=== PATIENT | male | born 1945 | race Two or more races ===

== ENCOUNTER 2023-04-12 18:40 | Inpatient (IN) | payer OTHER ==
[~2023-04-12] VITALS: Ht 180.3 cm; Wt 75.9 kg
[2023-04-12 22:00] VITALS: BP 148/68; PULSE 67; RESP 19; TEMP 98.6; O2SAT 97
[2023-04-12] MEDS ORDERED: DOCUSATE SOD 100 MG CAP PO PRN (22:45)
[2023-04-12] MEDS ORDERED: MORPHINE SULFATE INJ 2 MG/ml SYRG IV PRN (22:45)
[2023-04-12] MEDS ORDERED: ONDANSETRON HCL 4 MG/2 ML VIAL IV PRN (22:45)
[2023-04-12] MEDS ORDERED: NITROGLYCERIN 0.4 MG SL TAB SL PRN (22:45)
[2023-04-12 23:32] VITALS: BP 148/68; PULSE 67; RESP 19; TEMP 98.6; O2SAT 97
[2023-04-12] MEDS: MORPHINE SULFATE INJ 2 MG/ml SYRG IV PRN (23:59)
[2023-04-13] MEDS ORDERED: hydrALAZINE HCL 20 MG/ML VL IV PRN (00:30)
[2023-04-13] MEDS: MELATONIN 5 MG TAB PO ONE (01:22)
[2023-04-13] MEDS: HYDROcodone-ACET 5/325MG TAB PO PRN (02:00)
[2023-04-13 05:00] VITALS: BP 132/49; PULSE 74; RESP 17; TEMP 98.7; O2SAT 98
[2023-04-13] MEDS: PIPERACILLIN-TAZOB 3.375GM 100 ML IV SCH (05:46)
[2023-04-13 06:21] LABS: Basophils # (auto) 0.1 10 ^3/uL (0-0.2); Basophils % (auto) 0.4 % (0.0-2.0); Eosinophils # (auto) 0.1 10 ^3/uL (0-0.8); Eosinophils % (auto) 0.4 % (0.0-7.0); Hematocrit 35.2 % (41.0-53.0); Hemoglobin 11.3 g/dL (13.5-17.5); Lymphocytes % (auto) 7.2 % (10.0-50.0); Mean Corpuscular Hemoglobin 29.1 pg (28.0-32.0); Mean Corpuscular Hgb Conc. 32.1 g/dL (32.0-36.0); Mean Corpuscular Volume 90.7 fL (80.0-100.0); Monocytes # (auto) 0.9 10 ^3/uL (0-1.3); Monocytes % (auto) 6.3 % (0.0-12.0); Neutrophils # (auto) 11.9 10 ^3/uL (1.6-8.6); Neutrophils % (auto) 85.7 % (37.0-80.0); Nucleated Red Blood Cells % 0.1 %; Red Blood Cells 3.88 10^6/uL (4.5-5.90); Red Cell Distribution Width 18.5 % (11.8-14.3); White Blood Cell 13.8 10^3/uL (4.4-10.8)
[2023-04-13 06:22] LABS: Calcium 8.8 mg/dL (8.5-10.1); Chloride 101 mmol/L (98-107); Potassium 3.9 mmol/L (3.5-5.1); Sodium 132 mmol/L (136-145)
[2023-04-13 06:23] LABS: Anion Gap 10 (5-15); Carbon Dioxide 21 mmol/L (20-30)
[2023-04-13 06:28] LABS: BUN/Creatinine Ratio 10.3 (10.0-20.0); Blood Urea Nitrogen 7 mg/dL (9-23); Glucose 91 mg/dL (74-106)
[2023-04-13] MEDS ORDERED: FURO1TAB33 PO (06:42)
[2023-04-13 09:00] VITALS: BP 167/81; PULSE 96; RESP 18; TEMP 97.9; O2SAT 96
[2023-04-13 13:00] VITALS: BP 152/84; PULSE 74; RESP 19; TEMP 97.8; O2SAT 94
[2023-04-13 17:00] VITALS: BP 153/80; PULSE 93; RESP 19; TEMP 98.1; O2SAT 94
[2023-04-13 20:00] VITALS: BP 128/69; PULSE 85; RESP 18; TEMP 98; O2SAT 99
[2023-04-13 22:00] VITALS: BP 128/69; PULSE 85; RESP 18; TEMP 98; O2SAT 94
[2023-04-13] MEDS: MELATONIN 5 MG TAB PO SCH (22:18)
[2023-04-14] VITALS (8 sets, daily range): BP systolic 135–154; BP diastolic 54–89; PULSE 65–91; RESP 18–20; TEMP 97.4–97.9; O2SAT 93–100
[2023-04-14 06:38] LABS: Basophils # (auto) 0 10 ^3/uL (0-0.2); Basophils % (auto) 0.3 % (0.0-2.0); Eosinophils # (auto) 0.1 10 ^3/uL (0-0.8); Eosinophils % (auto) 1.3 % (0.0-7.0); Hematocrit 31.3 % (41.0-53.0); Lymphocytes # (auto) 1.1 10 ^3/uL (0.4-5.4); Lymphocytes % (auto) 9.8 % (10.0-50.0); Mean Corpuscular Hemoglobin 28.3 pg (28.0-32.0); Mean Corpuscular Hgb Conc. 31.9 g/dL (32.0-36.0); Mean Corpuscular Volume 88.9 fL (80.0-100.0); Monocytes % (auto) 8.8 % (0.0-12.0); Neutrophils # (auto) 8.9 10 ^3/uL (1.6-8.6); Neutrophils % (auto) 79.8 % (37.0-80.0); Nucleated Red Blood Cells % 0.1 %; Red Blood Cells 3.52 10^6/uL (4.5-5.90); Red Cell Distribution Width 18.3 % (11.8-14.3); White Blood Cell 11.2 10^3/uL (4.4-10.8)
[2023-04-14 07:01] LABS: Chloride 103 mmol/L (98-107); Potassium 3.3 mmol/L (3.5-5.1); Sodium 135 mmol/L (136-145)
[2023-04-14 07:02] LABS: Carbon Dioxide 24 mmol/L (20-30)
[2023-04-14 07:03] LABS: Calcium 8.3 mg/dL (8.5-10.1)
[2023-04-14 07:08] LABS: BUN/Creatinine Ratio 11.5 (10.0-20.0); Blood Urea Nitrogen 7 mg/dL (9-23); Glucose 87 mg/dL (74-106)
[2023-04-14 07:51] LABS: Anion Gap 8 (5-15)
[2023-04-14 09:39] LABS: INR 1.09 (0.9-1.15); Partial Thromboplastin Time 35.6 SEC (24.5-34.5); Prothrombin Time 11.4 sec (9.3-11.8)
[2023-04-14] MEDS: METOPROLOL TARTRATE 1MG/1ML-5ML VIAL IV ONE (15:20)
[2023-04-14] MEDS: MAGNESIUM SULFATE 1GM/100ML 100 ML IV SCH (15:20)
[2023-04-14] MEDS: POTASSIUM CHLORIDE 40 MEQ, LIDOCAINE 1% (LOCAL ANESTH.) 4 ML in SODIUM CHL 0.9% 250 ML IV ONE (18:19)
[2023-04-14] MEDS: METOPROLOL SUCCINATE XL 50 MG TAB PO ONE (22:40)
[2023-04-15] VITALS (7 sets, daily range): BP systolic 122–148; BP diastolic 72–91; PULSE 68–88; RESP 16–21; TEMP 97.9–98.4; O2SAT 91–98
[2023-04-15 05:31] LABS: Basophils # (auto) 0 10 ^3/uL (0-0.2); Basophils % (auto) 0.5 % (0.0-2.0); Eosinophils # (auto) 0.2 10 ^3/uL (0-0.8); Eosinophils % (auto) 1.8 % (0.0-7.0); Hematocrit 33.2 % (41.0-53.0); Hemoglobin 10.5 g/dL (13.5-17.5); Lymphocytes # (auto) 0.8 10 ^3/uL (0.4-5.4); Lymphocytes % (auto) 8.4 % (10.0-50.0); Mean Corpuscular Hemoglobin 27.9 pg (28.0-32.0); Mean Corpuscular Hgb Conc. 31.7 g/dL (32.0-36.0); Mean Corpuscular Volume 88.2 fL (80.0-100.0); Monocytes # (auto) 0.8 10 ^3/uL (0-1.3); Monocytes % (auto) 7.9 % (0.0-12.0); Neutrophils # (auto) 8.2 10 ^3/uL (1.6-8.6); Neutrophils % (auto) 81.4 % (37.0-80.0); Red Blood Cells 3.76 10^6/uL (4.5-5.90); Red Cell Distribution Width 18.1 % (11.8-14.3)
[2023-04-15 05:37] LABS: Chloride 105 mmol/L (98-107); Potassium 3.7 mmol/L (3.5-5.1); Sodium 136 mmol/L (136-145)
[2023-04-15 05:38] LABS: Anion Gap 6 (5-15); Carbon Dioxide 25 mmol/L (20-30)
[2023-04-15 05:43] LABS: BUN/Creatinine Ratio 8.2 (10.0-20.0); Blood Urea Nitrogen 5 mg/dL (9-23); Glucose 92 mg/dL (74-106); Magnesium 2.1 mg/dL (1.6-2.6)
[2023-04-15] MEDS: METOPROLOL SUCCINATE XL 50 MG TAB PO SCH (10:07)
[2023-04-15] MEDS ORDERED: IOHEXOL 350 MG/ML 100ML IJ ONE ×2 (13:04→13:30)
[2023-04-15] MEDS ORDERED: HYDR-4902 PO (13:50)
[2023-04-15] MEDS ORDERED: AUG875T PO (13:50)
[2023-04-15] MEDS ORDERED: METO-6 PO (13:52)
[2023-04-15] MEDS: FUROSEMIDE 20 MG/2 ML VIAL IV SCH (16:48)
[2023-04-16 05:00] VITALS: BP 135/90; PULSE 91; RESP 19; TEMP 97.9; O2SAT 87
[2023-04-16 05:52] LABS: Lymphocytes # (auto) 0.8 10 ^3/uL (0.4-5.4); Monocytes # (auto) 0.9 10 ^3/uL (0-1.3)
[2023-04-16 05:56] LABS: Basophils # (auto) 0 10 ^3/uL (0-0.2); Basophils % (auto) 0.3 % (0.0-2.0); Eosinophils # (auto) 0.3 10 ^3/uL (0-0.8); Eosinophils % (auto) 3.7 % (0.0-7.0); Hematocrit 32.4 % (41.0-53.0); Hemoglobin 10.5 g/dL (13.5-17.5); Lymphocytes % (auto) 8.5 % (10.0-50.0); Mean Corpuscular Hemoglobin 28.5 pg (28.0-32.0); Mean Corpuscular Hgb Conc. 32.3 g/dL (32.0-36.0); Mean Corpuscular Volume 88.2 fL (80.0-100.0); Monocytes % (auto) 9.5 % (0.0-12.0); Neutrophils # (auto) 7.3 10 ^3/uL (1.6-8.6); Red Blood Cells 3.68 10^6/uL (4.5-5.90); Red Cell Distribution Width 18.1 % (11.8-14.3); White Blood Cell 9.4 10^3/uL (4.4-10.8)
[2023-04-16 05:59] LABS: Anion Gap 5 (5-15); Carbon Dioxide 27 mmol/L (20-30); Chloride 103 mmol/L (98-107); Potassium 3.3 mmol/L (3.5-5.1); Sodium 135 mmol/L (136-145)
[2023-04-16 06:00] LABS: Calcium 7.9 mg/dL (8.7-10.4)
[2023-04-16 06:05] LABS: Glucose 90 mg/dL (74-106)
[2023-04-16 06:26] LABS: BUN/Creatinine Ratio 7.2 (10.0-20.0); Blood Urea Nitrogen < 5 mg/dL (9-23)
[2023-04-16 07:30] VITALS: PULSE 77; O2SAT 97
[2023-04-16 08:40] VITALS: BP 143/84; PULSE 81; RESP 18; TEMP 97.8; O2SAT 92
[2023-04-16] MEDS: POTASSIUM CHL 10 Meq TABLET PO SCH (09:41)
[2023-04-16] MEDS: ACETAMINOPHEN 325 MG TAB PO PRN (09:42)
[2023-04-16 13:15] VITALS: BP 110/68; PULSE 81; RESP 18; TEMP 97.7; O2SAT 95
[2023-04-16 14:10] VITALS: BP 110/68; PULSE 81; RESP 18; TEMP 97.7; O2SAT 95
== END 2023-04-16 16:10 | disposition home health service (06) | DRG 729 ==
LOC: UNDOADMIN 21:39 → CENTRAL 21:39 → TELE-CENTR 04-14 18:00
PROVIDERS: ADMIT Internal Medicine; ATTEND Internal Medicine
PROC: 0V973ZZ Drainage of Left Tunica Vaginalis, Percutaneous Approach (ICD-10-PCS; principal; 2023-04-14 13:37)
DX: N43.3 Hydrocele, unspecified (principal); I50.23 Acute on chronic systolic (congestive) heart failure; J96.01 Acute respiratory failure with hypoxia; E87.1 Hypo-osmolality and hyponatremia; C77.2 Secondary and unspecified malignant neoplasm of intra-abdominal lymph nodes; N49.2 Inflammatory disorders of scrotum; C61 Malignant neoplasm of prostate; D72.829 Elevated white blood cell count, unspecified; N13.9 Obstructive and reflux uropathy, unspecified; I49.3 Ventricular premature depolarization; I11.0 Hypertensive heart disease with heart failure; N40.0 Benign prostatic hyperplasia without lower urinary tract symptoms; G89.29 Other chronic pain; K59.00 Constipation, unspecified; R59.0 Localized enlarged lymph nodes; I49.1 Atrial premature depolarization; Z85.46 Personal history of malignant neoplasm of prostate; Z90.79 Acquired absence of other genital organ(s); Z79.899 Other long term (current) drug therapy; Z87.891 Personal history of nicotine dependence
CPT/HCPCS: 36415; 71275; 76870; 78306; 80048; 82105; 83735; 83880; 85025; 85610; 85730; 87040; 87081; 93306; 97110; 97116; 97163; 97530; G0378; J2001; J2543

== ENCOUNTER 2023-04-30 13:03 | Emergency (ER) | payer OTHER ==
[~2023-04-30] VITALS: Ht 180.3 cm; Wt 77.0 kg
[~2023-04-30 13:03] MED LIST: AUG875T PO; FURO1TAB33 PO; HYDR-4902 PO; METO-6 PO
[2023-04-30] MEDS ORDERED: CIPR-173 PO (15:24)
[2023-04-30 15:31] VITALS: BP 150/75; PULSE 72; RESP 16; TEMP 97.8; O2SAT 95
== END 2023-04-30 15:38 | disposition home or self-care (01) ==
LOC: ER 13:03
DX: Z46.6 Encounter for fitting and adjustment of urinary device (principal); N39.0 Urinary tract infection, site not specified; Z90.89 Acquired absence of other organs; Z79.2 Long term (current) use of antibiotics; Z79.899 Other long term (current) drug therapy
CPT/HCPCS: 51702